=== PATIENT | male | born 1930 | race Caucasian/White ===

== ENCOUNTER 2016-06-29 02:13 | Observation (INO) | payer MEDICARE, BC ==
[~2016-06-29] VITALS: Ht 177.8 cm; Wt 72.6 kg
[~2016-06-29 02:13] MED LIST: ACETAMINOPHEN W1 TA6 PO; ANTACID1 CT2 PO; ANTIVERT 25MG25 MG PO; ASMANEX IN; ASMANEX TW110 MCG/AC IH; ASPIRIN 81M81 MG/TA2 PO; CALCIUM CARBONATE PO; CIPRO 500MG TA500 MG PO; CLEOCIN HC150 MG/CAP PO; COMBIVENT INH14.7 GM IH; FEOSOL45 MG PO; FERREX 150150 MG PO; FINASTERIDE PO; FLAGYL500 MG PO; FLONASE NASAL S16 GM NS; FOLIC ACID 40400 MCG PO; FOLIC ACID1 MG PO; MAALOX ADVANCE148 ML PO; MAALOX1 TAB PO; METOCLOPRAMIDE5 MG PO; MULTAQ400 MG PO; MULTIPLE VITAMI1 CAP PO; NAPROSYN375 MG PO; NORCO 325 MG-51 TAB PO; PHENERGAN 25 TA25 MG PO; PREDNISONE20 MG PO; PREVACID 30MG30 M1 PO; PREVACID 30MG30 MG PO; PRIL40 PO; PRILOTC; PROBIOTIC-MAJOR PO; PROSCAR 5MG5 MG PO; REGLAN 5MG5 MG PO; ROLAIDS220 M1 PO; STOOL SOFTENER100 M2 PO; STOOL SOFTENER100 MG PO; TUMS500 MG PO; TYLENOL #3 301 UDTAB PO; VALIUM 2MG T2 MG/TAB PO; VALIUM 5MG T5 MG/TAB PO; VANCOCIN H125 MG/CAP PO; VITAMIN C BUFF500 MG PO; VITAMIN C PO; ZITHROMAX Z PA250 MG PO; ZOFRAN ODT4 MG PO; ZOFRAN8 MG PO; [UNRECOGNIZED DRUG - OTHER] IN
[2016-06-29 02:50] LABS: ALLEN TEST YES; ALLENS TEST RESULT PASS; ARTERIAL BLD GAS O2 SATURATION 96.7 % (92-100); ARTERIAL BLD GAS TCO2 CT 24.1; ARTERIAL BLOOD GAS BASE EXCESS 0.3 (-2-2); ARTERIAL BLOOD GAS HCO3 23.1 meq/L (22-26); ARTERIAL BLOOD GAS PO2 92.8 mmHg (80-100); ARTERIAL BLOOD GAS pH 7.47 (7.35-7.45); ATS? YES
[2016-06-29 02:58] LABS: BASO % 0.6 % (0.0-2.0); EOS # 0.2 (0.0-0.7); EOS % 2.5 % (0-4.0); GRAN # 3.7 (1.4-6.5); GRAN % 58.3 % (42.2-75.2); HEMATOCRIT 40.9 % (42.0-52.0); LYMPH # 1.8 (1.2-3.4); LYMPH % 28.6 % (20.0-51.0); MEAN CELL VOLUME 87 fl (80.0-100.0); MEAN CORPUSCULAR HEMOGLOBIN 30 pg (27.0-31.0); MEAN CORPUSCULAR HGB CONC 34 g/dl (33.0-37.0); MEAN PLATELET VOLUME 9.3 fl (7.4-10.4); MONO # 0.6 (0.1-0.6); MONO % 9.7 % (1.7-9.3); PLATELET COUNT 176 K/mm3 (130-400); RED BLOOD COUNT 4.71 M/mm3 (4.20-5.60); REDCELL DISTRIBUTION WIDTH-CV 12.3 % (11.5-14.5); WHITE BLOOD COUNT 6.3 K/mm3 (4.8-10.8)
[2016-06-29 03:05] LABS: PROTHROMBIN TIME 11.5 SECONDS (9.7-12.8)
[2016-06-29 03:07] LABS: ADJUSTED CALCIUM 9.2 mg/dL (8.4-10.2); ALANINE AMINOTRANSFERASE 29 U/L (21-72); ALBUMIN 3.7 gm/dL (3.5-5.0); ALKALINE PHOSPHATASE 71 U/L (50-136); ANION GAP 10 mmol/L (7-16); BILIRUBIN,TOTAL 0.7 mg/dL (0.0-1.0); BLOOD UREA NITROGEN 15 mg/dL (9-20); CARBON DIOXIDE 24 mmol/L (22-30); CHLORIDE 96 mmol/L (98-107); CREATININE, serum 0.65 mg/dL (0.66-1.25); GLUCOSE 90 mg/dL (74-106); POTASSIUM 3.9 mmol/L (3.4-5.0); SODIUM 130 mmol/L (137-145); TOTAL PROTEIN 6.4 gm/dL (6.4-8.2)
[2016-06-29 03:08] LABS: PARTIAL THROMBOPLASTIN TIME 33.4 SECONDS (26.0-37.0)
[2016-06-29 03:18] LABS: B-TYPE NATRIURETIC PEPTIDE 555 pg/mL (0-450)
[2016-06-29 03:19] LABS: TROPONIN-I < 0.012 ng/mL (0.000-0.034)
[2016-06-29] MEDS ORDERED: PROTONIX 40MG T40 MG PO (06:15)
[2016-06-29] MEDS ORDERED: PLAVIX 75MG TAB75 MG PO (06:15)
[2016-06-29] MEDS ORDERED: CARAFATE 1GM1 G PO (06:16)
[2016-06-29] MEDS ORDERED: STOOL SOFTENER100 M2 PO (06:16)
[2016-06-29] MEDS ORDERED: MELATONIN5 M1 SL (06:16)
[2016-06-29] MEDS ORDERED: PAMELOR 10MG10 MG PO (06:17)
[2016-06-29 08:11] VITALS: BP 112/65; PULSE 72; TEMP 98.2
[2016-06-29 11:22] VITALS: BP 111/73; PULSE 68; TEMP 97.5
[2016-06-29 12:08] LABS: MAGNESIUM 1.8 mg/dL (1.6-2.3); PHOSPHOROUS 3.3 mg/dL (2.5-4.5)
[2016-06-29 14:14] LABS: PH 6 (5-8); SQUAMOUS EPITHELIAL 0-2 /hpf; URINE APPEARANCE Clear; URINE BACTERIA Rare /hpf; URINE BILIRUBIN Negative (NEGATIVE); URINE BLOOD 1+ (NEGATIVE); URINE COLOR Yellow; URINE GLUCOSE Negative (NEGATIVE); URINE KETONE Negative (NEGATIVE); URINE UROBILINOGEN Negative (NEGATIVE); URINE WBC 0-2 /hpf
[2016-06-29 15:57] VITALS: BP 120/73; PULSE 68; TEMP 98.1
[2016-06-29 19:23] VITALS: BP 121/61; PULSE 68; TEMP 98.2
[2016-06-29 22:40] VITALS: BP 126/69; PULSE 87; TEMP 98.7
[2016-06-30 03:28] VITALS: BP 96/49; PULSE 66; TEMP 97.7
[2016-06-30 07:50] LABS: CALCIUM 8.8 mg/dL (8.4-10.2); CREATININE, serum 0.65 mg/dL (0.66-1.25); POTASSIUM 4.1 mmol/L (3.4-5.0)
[2016-06-30 08:18] VITALS: BP 122/79; PULSE 81; TEMP 97.7
[2016-06-30] MEDS ORDERED: MULTAQ400 MG PO (16:02)
[2016-06-30] MEDS ORDERED: ELIQUIS 5MG PO (16:03)
== END 2016-06-30 16:44 | disposition home or self-care (01) ==
LOC: COL.ER 02:13 → MEDICAL 05:25 → COL.ER 05:25 → MEDICAL 07:18
PROVIDERS: Emergency Medicine; Physician Assistant
DX: I48.91 Unspecified atrial fibrillation (principal); E87.1 Hypo-osmolality and hyponatremia; K21.9 Gastro-esophageal reflux disease without esophagitis; I08.3 Combined rheumatic disorders of mitral, aortic and tricuspid valves; Z86.73 Personal history of transient ischemic attack (TIA), and cerebral infarction without residual deficits; Z85.46 Personal history of malignant neoplasm of prostate; Z85.828 Personal history of other malignant neoplasm of skin; Z87.891 Personal history of nicotine dependence
CPT/HCPCS: 99223-AI; 99239; G0378; J1160; J1650; J7030; J7050

== ENCOUNTER 2016-08-01 11:40 | Inpatient (IN) | payer MEDICARE, BC ==
[~2016-08-01] VITALS: Ht 175.3 cm; Wt 73.5 kg
[~2016-08-01 11:40] MED LIST changes: +CARAFATE 1GM1 G PO; +ELIQUIS 5MG PO; +MELATONIN5 M1 SL; +PAMELOR 10MG10 MG PO; +PLAVIX 75MG TAB75 MG PO; +PROTONIX 40MG T40 MG PO
[2016-08-01 13:45] VITALS: BP 124/74; PULSE 68; TEMP 97.7
[2016-08-01 14:25] LABS: BASO % 0.8 % (0.0-2.0); EOS # 0.1 (0.0-0.7); EOS % 1.6 % (0-4.0); GRAN # 3.8 (1.4-6.5); GRAN % 74.1 % (42.2-75.2); HEMATOCRIT 38.7 % (42.0-52.0); HEMOGLOBIN 12.7 g/dl (13.5-18.0); LYMPH # 0.9 (1.2-3.4); LYMPH % 16.7 % (20.0-51.0); MEAN CELL VOLUME 89 fl (80.0-100.0); MEAN CORPUSCULAR HEMOGLOBIN 29 pg (27.0-31.0); MEAN CORPUSCULAR HGB CONC 33 g/dl (33.0-37.0); MEAN PLATELET VOLUME 9.1 fl (7.4-10.4); MONO # 0.3 (0.1-0.6); MONO % 6.4 % (1.7-9.3); PLATELET COUNT 182 K/mm3 (130-400); RED BLOOD COUNT 4.35 M/mm3 (4.20-5.60); REDCELL DISTRIBUTION WIDTH-CV 12.4 % (11.5-14.5); WHITE BLOOD COUNT 5.1 K/mm3 (4.8-10.8)
[2016-08-01 14:43] LABS: INR 1.1 (0.8-3.0); PROTHROMBIN TIME 11.8 SECONDS (9.7-12.8)
[2016-08-01] MEDS ORDERED: ASPIRIN E.C. 8181 MG PO (15:03)
[2016-08-01 15:20] LABS: ADJUSTED CALCIUM 8.8 mg/dL (8.4-10.2); ALBUMIN 3.6 gm/dL (3.5-5.0); BILIRUBIN,TOTAL 0.7 mg/dL (0.0-1.0); CALCIUM 8.5 mg/dL (8.4-10.2); CREATININE, serum 0.6 mg/dL (0.66-1.25); POTASSIUM 4.2 mmol/L (3.4-5.0); TOTAL PROTEIN 6.3 gm/dL (6.4-8.2)
[2016-08-01 16:36] VITALS: BP 114/60; PULSE 68; TEMP 97.8
[2016-08-01 19:49] VITALS: BP 141/78; PULSE 51; TEMP 98
[2016-08-01 23:14] VITALS: BP 112/51; PULSE 67; TEMP 97.5
[2016-08-02 02:15] VITALS: BP 106/51; PULSE 56; TEMP 98.1
[2016-08-02 08:14] LABS: INR 1.1 (0.8-3.0); PROTHROMBIN TIME 11.9 SECONDS (9.7-12.8)
[2016-08-02 08:32] VITALS: BP 128/78; PULSE 57; TEMP 98.4
[2016-08-02 11:34] VITALS: BP 110/61; PULSE 71; TEMP 97.8
[2016-08-02 15:24] VITALS: BP 93/57; PULSE 51; TEMP 97.4
[2016-08-02 20:10] VITALS: BP 114/64; PULSE 57; TEMP 97.8
[2016-08-03 01:22] VITALS: BP 112/64; PULSE 64; TEMP 97.8
[2016-08-03 05:27] VITALS: BP 103/52; PULSE 56; TEMP 98.3
[2016-08-03 06:49] LABS: INR 1.1 (0.8-3.0); PROTHROMBIN TIME 12.3 SECONDS (9.7-12.8)
[2016-08-03 07:35] VITALS: BP 101/56; PULSE 98; TEMP 97.8
[2016-08-03 11:15] VITALS: BP 109/60; PULSE 50
[2016-08-03 15:39] VITALS: BP 130/69; PULSE 110; TEMP 97.9
[2016-08-03] MEDS ORDERED: BETAPACE 80MG80 MG PO (16:38)
[2016-08-03] MEDS ORDERED: CEPHALEXIN500 M1 PO (16:43)
[2016-08-03] MEDS ORDERED: COUMADIN 5MG5 MG/TAB PO (16:45)
== END 2016-08-03 18:53 | disposition home or self-care (01) | DRG 262 ==
LOC: MEDICAL 11:40
PROVIDERS: Internal Medicine Cardiovascular Disease
PROC: 0JH602Z Insertion of Monitoring Device into Chest Subcutaneous Tissue and Fascia, Open Approach (ICD-10-PCS; principal; 2016-08-02)
DX: I48.0 Paroxysmal atrial fibrillation (principal); I35.1 Nonrheumatic aortic (valve) insufficiency

== ENCOUNTER 2017-07-04 15:45 | Outpatient (RCR) | payer BC, MEDICARE ==
[~2017-07-04 15:45] MED LIST changes: +ASPIRIN E.C. 8181 MG PO; +BETAPACE 80MG80 MG PO; +CEPHALEXIN500 M1 PO; +COUMADIN 5MG5 MG/TAB PO
== END 2017-07-05 14:05 | disposition home health service (06) ==
LOC: WSPT 15:45
DX: S16.1XXD Strain of muscle, fascia and tendon at neck level, subsequent encounter (principal)
CPT/HCPCS: G8978-GP; G8979-GP

== ENCOUNTER 2017-08-04 16:25 | Emergency (ER) | payer MEDICARE, BC ==
[2004-12-14 09:52] VITALS: BP 120/60
[2017-08-04 16:47] LABS: BASO # 0.1 (0.0-0.2); BASO % 0.5 % (0.0-2.0); EOS # 0.1 (0.0-0.7); EOS % 0.8 % (0-4.0); GRAN # 9.3 (1.4-6.5); GRAN % 76.5 % (42.2-75.2); HEMOGLOBIN 11.3 g/dl (13.5-18.0); LYMPH # 1.9 (1.2-3.4); LYMPH % 15.3 % (20.0-51.0); MEAN CELL VOLUME 88 fl (80.0-100.0); MEAN CORPUSCULAR HEMOGLOBIN 30 pg (27.0-31.0); MEAN CORPUSCULAR HGB CONC 34 g/dl (33.0-37.0); MEAN PLATELET VOLUME 9.6 fl (7.4-10.4); MONO # 0.8 (0.1-0.6); MONO % 6.3 % (1.7-9.3); PLATELET COUNT 173 K/mm3 (130-400); RED BLOOD COUNT 3.79 M/mm3 (4.20-5.60); REDCELL DISTRIBUTION WIDTH-CV 12.7 % (11.5-14.5)
[2017-08-04 16:58] LABS: ACETAMINOPHEN < 10 ug/mL (10-30); ALANINE AMINOTRANSFERASE 34 U/L (21-72); ALBUMIN 2.8 gm/dL (3.5-5.0); ALCOHOL(ethanol),MEDICAL < 10 mg/dL; ALKALINE PHOSPHATASE 56 U/L (50-136); ANION GAP 8 mmol/L (7-16); AST,SGOT 27 U/L (15-37); BILIRUBIN,TOTAL 0.4 mg/dL (0.0-1.0); BLOOD UREA NITROGEN 13 mg/dL (9-20); CALCIUM 7.7 mg/dL (8.4-10.2); CARBON DIOXIDE 23 mmol/L (22-30); CHLORIDE 98 mmol/L (98-107); CREATININE, serum 0.65 mg/dL (0.66-1.25); GLUCOSE 110 mg/dL (74-106); INR 2.9 (0.8-3.0); POTASSIUM 4.1 mmol/L (3.4-5.0); PROTHROMBIN TIME 32.9 SECONDS (9.7-12.8); SALICYLATE < 1.0 mg/dL; SODIUM 130 mmol/L (137-145); TOTAL PROTEIN 5.1 gm/dL (6.4-8.2)
[2017-08-04 16:59] LABS: HEMATOCRIT 33.4 % (42.0-52.0)
[2017-08-04] MEDS ORDERED: PROTONIX20 MG PO (17:00)
[2017-08-04 19:10] VITALS: BP 167/86; PULSE 45
== END 2017-08-04 18:15 | disposition short-term general hospital (02) ==
LOC: COL.ER 16:25
PROVIDERS: Emergency Medicine
DX: S06.5X9A Traumatic subdural hemorrhage with loss of consciousness of unspecified duration, initial encounter (principal); S02.91XA Unspecified fracture of skull, initial encounter for closed fracture; Z79.01 Long term (current) use of anticoagulants; Z79.82 Long term (current) use of aspirin; X58.XXXA Exposure to other specified factors, initial encounter; Y93.H2 Activity, gardening and landscaping
CPT/HCPCS: J2250; J3010; J3430; J7050